=== PATIENT | male | born 1985 | race Caucasian/White ===

== ENCOUNTER 2024-08-05 22:10 | Emergency (ER) | payer MEDICAID, SELFPAY ==
[2024-08-05 22:11] VITALS: BMI 25.7
[2024-08-05 22:38] VITALS: BP 150/95; PULSE 100; RESP 19; TEMP 37.1; O2SAT 98
--- NOTE | 2024-08-05 23:02 | XR_ITS ---
Examination: PA lateral chest 2 views Technique: Upright PA lateral chest 2 views Exam date and time: August 05, 2024 11:09 PM Indications: Chest pain shortness of breath today. Findings: Normal heart size. Lungs are clear. The osseous structures intact Impression: No active disease
--- NOTE | 2024-08-05 23:03 | PD.EDRME ---
Rapid Medical Screening Exam RME Arrival date/time: 08/05/24 22:10 39M with history of cigarette smoking presents to ED with 1 day of CP and SOB. Chief Complaint: Chest Pain Vital signs: Vital Signs Temperature 98.8 F 08/05/24 22:38 Pulse Rate 100 08/05/24 22:38 Respiratory Rate 19 08/05/24 22:38 Blood Pressure 150/95 H 08/05/24 22:38 Pulse Oximetry (%) 98 08/05/24 22:38 Oxygen Delivery Method Room Air 08/05/24 22:38
[2024-08-05] MEDS: DEXAMETHASONE SOD PHOS INJ 10 MG/ML VIAL PO (23:06)
== END 2024-08-05 23:17 | disposition left against medical advice (07) ==
LOC: SERX 23:23
PROVIDERS: Emergency Provider Emergency Medicine; PCP Nurse Practitioner Family
DX: R06.02 Shortness of breath (principal); R07.9 Chest pain, unspecified; R00.0 Tachycardia, unspecified; Z53.29 Procedure and treatment not carried out because of patient's decision for other reasons
CPT/HCPCS: 71046; 80053; 84484; 85025; 87400; 87811; 93005; 99281; A9270; J1100